=== PATIENT | female | born 1945 | race Caucasian/White ===

== ENCOUNTER 2025-02-24 06:11 | Inpatient (IN) | payer MEDICARE ==
[~2025-02-24] VITALS: Ht 172.7 cm; Wt 70.5 kg
[~2025-02-24 06:11] MED LIST: ACET-66 PO; ASPI-1444 PO; CEPH-558 PO; CeFAZolin 2 GM/DEXTROSE 50 ML IV ONE; FINA5TAB41 PO; LEUC5TAB PO; LEVO112T7 PO; METO-391 PO; PANT40TA54 PO; RINGERS SOLUTION,LACTATED 1,000 ML IV ONE; SPIR-37 PO
[2025-02-24 06:52] LABS: PLATELET COUNT (AUTO) 195 K/uL (150-450); RED BLOOD CELL COUNT(AUTO) 4.38 MIL/uL (4.00-5.20); RED CELL DISTRIBUTION WIDTH 13.6 % (11.5-14.5); WHITE BLOOD COUNT (AUTO) 4.3 K/uL (4.5-11.0)
[2025-02-24 06:55] LABS: CALCIUM, TOTAL 9.2 mg/dL (8.8-10.5); CREATININE 0.87 mg/dL (0.60-1.30); GLOMERULAR FILTR. RATE CALC > 60 mL/min (>60); GLUCOSE,RANDOM 96 mg/dL (70-110); SODIUM SERUM 135 mmol/L (136-145); UREA NITROGEN, BLOOD 15 mg/dL (7-18)
[2025-02-24] MEDS ORDERED: GELATIN SPONGE,ABSORBABLE 50 MM TP ONE (07:00)
[2025-02-24] MEDS ORDERED: MICROFIBRILLAR COLLAGEN 1 GM PACKAGE TP ONE (07:01)
[2025-02-24] MEDS ORDERED: SODIUM CHLORIDE 0.9% 30 ML ONE (07:01)
[2025-02-24] MEDS ORDERED: BUPIVACAINE HCL/PF 0.5% 30 ML VIAL ONE (07:02)
[2025-02-24] MEDS: CHLORHEXIDINE GLUCONATE 2% TOWELETTE [2'S/6'S] TP ONE (07:13)
[2025-02-24] MEDS: RINGERS SOLUTION,LACTATED 1,000 ML IV ONE (07:13)
[2025-02-24] MEDS: ETHYL ALCOHOL 62% ANTISEPTIC NASAL SANITIZER 0.6 ML AMPUL NASAL ONE (07:13)
[2025-02-24] MEDS: CeFAZolin 2 GM/DEXTROSE 50 ML IV ONE (07:40)
[2025-02-24] MEDS ORDERED: FentaNYL CITRATE PF 100 MCG/2 ML VIAL IVP PRN (08:15)
[2025-02-24] MEDS ORDERED: MEPERIDINE-PF 25 MG/ML VIAL IVP PRN (08:15)
[2025-02-24] MEDS ORDERED: RINGERS SOLUTION,LACTATED 1,000 ML IV ONE (08:42)
[2025-02-24] MEDS: VANCOMYCIN HCL 1 GM VIAL ONE (09:00)
[2025-02-24] MEDS: BUPIVACAINE LIPOSOME/PF 1.3%-13.3MG/ML SUSP 20 ML VIAL INJ ONE (09:00)
[2025-02-24] MEDS: BUPIVACAINE HCL/PF 0.25% 30 ML VIAL ONE (09:14)
[2025-02-24] MEDS ORDERED: ALBUTEROL SULFATE 2.5 MG/0.5 ML NEB SOLUTION NEB ONE (09:52)
[2025-02-24] MEDS ORDERED: IPRATROPIUM BROMIDE 0.5 MG/2.5 ML NEB SOLUTION NEB ONE (09:52)
[2025-02-24] MEDS ORDERED: IPRATROPIUM BROMIDE 0.5 MG/2.5 ML NEB SOLUTION NEB PRN ×2 (11:00→15:30)
[2025-02-24] MEDS ORDERED: ALBUTEROL SULFATE 2.5 MG/0.5 ML NEB SOLUTION NEB PRN ×2 (11:00→15:30)
[2025-02-24] MEDS ORDERED: ALBUTEROL SULFATE 2.5 MG/0.5 ML NEB SOLUTION NEB SCH (11:00)
[2025-02-24] MEDS ORDERED: IPRATROPIUM BROMIDE 0.5 MG/2.5 ML NEB SOLUTION NEB SCH (11:00)
[2025-02-24 11:34] VITALS: BP 137/77; PULSE 105; RESP 18; TEMP 97.7; O2SAT 95
[2025-02-24] MEDS ORDERED: FentaNYL CITRATE PF 100 MCG/2 ML VIAL ONE (12:00)
[2025-02-24] MEDS ORDERED: HYDROmorphone 2 MG/ML 20 ML VIAL IV ONE (12:00)
[2025-02-24] MEDS: ACETAMINOPHEN 1000 MG/ISO-OSM 100 ML IV SCH (13:00)
[2025-02-24] MEDS ORDERED: BISACODYL 10 MG RECTAL RECTAL SUPPOSITORY PR PRN (15:30)
[2025-02-24] MEDS ORDERED: MAGNESIUM HYDROXIDE SUSPENSION 30 ML UDCUP PO PRN (15:30)
[2025-02-24] MEDS ORDERED: ZOLPIDEM TARTRATE 5 MG TABLET PO PRN (15:30)
[2025-02-24 16:00] VITALS: BP 128/72; PULSE 78; RESP 18; TEMP 98.4; O2SAT 95
[2025-02-24] MEDS ORDERED: ONDANSETRON HCL 4 MG/2 ML VIAL ONE (16:08)
[2025-02-24] MEDS ORDERED: PROPOFOL 1% 20 ML VIAL IVP ONE (16:08)
[2025-02-24] MEDS ORDERED: ROCURONIUM BROMIDE 10 MG/ML 5 ML VIAL ONE (16:08)
[2025-02-24] MEDS ORDERED: 0.9% SODIUM CHLORIDE 10 ML VIAL ONE (16:08)
[2025-02-24] MEDS ORDERED: LIDOCAINE/PF 2% 5 ML SYRINGE IVP ONE (16:08)
[2025-02-24] MEDS ORDERED: DEXAMETHASONE SOD PHOS 4 MG/ML VIAL ONE (16:08)
[2025-02-24] MEDS ORDERED: SUGAMMADEX SODIUM 200 MG/2 ML VIAL IVP ONE (16:08)
[2025-02-24] MEDS: CeFAZolin 2 GM/DEXTROSE 50 ML IV SCH (16:08)
[2025-02-24] MEDS ORDERED: ACETAMINOPHEN/ISO-OSM 1000 MG/100 ML BOTTLE IV ONE (16:08)
[2025-02-24] MEDS ORDERED: SODIUM CHLORIDE 0.9% 250 ML IV ONE (17:14)
[2025-02-24 19:47] VITALS: BP 129/71; PULSE 75; RESP 19; TEMP 97.3; O2SAT 97
[2025-02-24] MEDS: OXYGEN THERAPY IH SCH (20:00)
[2025-02-24] MEDS: DOCUSATE SODIUM 100 MG CAPSULE PO SCH (20:39)
[2025-02-25 00:15] VITALS: BP 145/69; PULSE 88; RESP 19; TEMP 98.2; O2SAT 97
[2025-02-25] MEDS: ONDANSETRON HCL 4 MG/2 ML VIAL IVP PRN (01:18)
[2025-02-25 04:00] VITALS: BP 140/63; PULSE 83; RESP 18; TEMP 98.5; O2SAT 96
[2025-02-25] MEDS: LEVOTHYROXINE SODIUM 112 MCG TABLET PO SCH (05:48)
[2025-02-25 06:08] LABS: PLATELET COUNT (AUTO) 168 K/uL (150-450); RED BLOOD CELL COUNT(AUTO) 3.61 MIL/uL (4.00-5.20); RED CELL DISTRIBUTION WIDTH 13.8 % (11.5-14.5); WHITE BLOOD COUNT (AUTO) 5.6 K/uL (4.5-11.0)
[2025-02-25 06:26] LABS: CALCIUM, TOTAL 8.4 mg/dL (8.8-10.5); CREATININE 0.63 mg/dL (0.60-1.30); GLOMERULAR FILTR. RATE CALC > 60 mL/min (>60); GLUCOSE,RANDOM 103 mg/dL (70-110); SODIUM SERUM 134 mmol/L (136-145); UREA NITROGEN, BLOOD 12 mg/dL (7-18)
[2025-02-25 08:35] VITALS: BP 156/78; PULSE 74; RESP 18; TEMP 98.1; O2SAT 98
[2025-02-25] MEDS ORDERED: METOPROLOL SUCCINATE 50 MG ER TABLET PO SCH (09:00)
[2025-02-25] MEDS: ENOXAPARIN SODIUM 40 MG/0.4 ML PF SYRINGE SQ SCH (09:59)
[2025-02-25] MEDS: PANTOPRAZOLE SODIUM 40 MG DR TABLET PO SCH (09:59)
[2025-02-25] MEDS: FINASTERIDE 5 MG TABLET PO SCH (09:59)
[2025-02-25] MEDS: METOPROLOL SUCCINATE 50 MG ER TABLET PO SCH (10:03)
[2025-02-25 11:51] VITALS: BP 150/87; PULSE 78; RESP 19; TEMP 98.2; O2SAT 97
[2025-02-25] MEDS: ACETAMINOPHEN 325 MG TABLET PO PRN (13:17)
[2025-02-25 16:22] VITALS: BP 168/81; PULSE 74; RESP 18; TEMP 98.4; O2SAT 96
[2025-02-25 19:34] VITALS: BP 126/71; PULSE 77; RESP 18; TEMP 99; O2SAT 96
[2025-02-26 04:00] VITALS: BP 164/77; PULSE 88; RESP 18; TEMP 98.8; O2SAT 96
[2025-02-26] MEDS: CYCLOBENZAPRINE HCL 10 MG TABLET PO PRN (08:35)
[2025-02-26 11:07] VITALS: BP 139/69; PULSE 77; RESP 17; TEMP 98.2; O2SAT 94
[2025-02-26 15:46] VITALS: BP 157/75; PULSE 80; RESP 18; TEMP 98.1; O2SAT 97
[2025-02-26 19:39] VITALS: BP 125/76; PULSE 82; RESP 18; TEMP 98.6; O2SAT 97
[2025-02-27 05:19] VITALS: BP 149/84; PULSE 76; RESP 18; TEMP 97.9; O2SAT 97
[2025-02-27 08:13] VITALS: BP 150/89; PULSE 78; RESP 18; TEMP 97.5; O2SAT 98
[2025-02-27] MEDS ORDERED: ENOX40SY14 SQ (14:26)
[2025-02-27] MEDS ORDERED: DOCU-385 PO (14:26)
[2025-02-27] MEDS ORDERED: PANT-31 PO (14:27)
[2025-02-27] MEDS ORDERED: ACET-2247 PO (14:28)
[2025-02-27] MEDS ORDERED: CYCL-448 PO (14:29)
[2025-02-27] MEDS ORDERED: HYDR2CAR IVP (14:30)
[2025-02-27] MEDS ORDERED: MAGN-169 PO (14:31)
[2025-02-27] MEDS ORDERED: ONDA-104 IVP (14:33)
[2025-02-27] MEDS ORDERED: ZOLP-280 PO (14:34)
[2025-02-27] MEDS ORDERED: BISA-151 PO (14:35)
[2025-02-27] MEDS ORDERED: ALBU2.5V39 NEB (14:38)
[2025-02-27] MEDS ORDERED: IPRA0.2S49 NEB (14:39)
== END 2025-02-27 14:52 | DRG 476 ==
LOC: 4E 06:11 → 5S 11:15 → 4E 02-25 19:52
PROVIDERS: ADMIT Orthopaedic Surgery; ATTEND Hospitalist
PROC: 0KR Muscles, Replacement (ICD-10-PCS; 2025-02-24)
PROC: 0Y6H0Z1 Detachment at Right Lower Leg, High, Open Approach (ICD-10-PCS; principal; 2025-02-24 07:30)
DX: M21.861 Other specified acquired deformities of right lower leg (principal); G89.29 Other chronic pain; E03.9 Hypothyroidism, unspecified; I49.9 Cardiac arrhythmia, unspecified; M79.661 Pain in right lower leg; Z88.2 Allergy status to sulfonamides; Z88.1 Allergy status to other antibiotic agents; Z88.3 Allergy status to other anti-infective agents; Z88.5 Allergy status to narcotic agent
CPT/HCPCS: 80048; 84443; 85025; 85610; 85730; 87081; 88307; 93005; 97162; 97167; 97530; 97535; G0378; J0131; J0360; J0666; J0690; J1100; J1171; J1650; J2405; J2704; J3010; J3373; J3490; J7050; J7120

== ENCOUNTER 2025-02-27 10:23 | Inpatient (IN) | payer MEDICARE ==
[~2025-02-27] VITALS: Ht 172.7 cm; Wt 69.0 kg
[~2025-02-27 10:23] MED LIST changes: -ACET-66 PO; -ASPI-1444 PO; -CEPH-558 PO; -CeFAZolin 2 GM/DEXTROSE 50 ML IV ONE; -LEUC5TAB PO; -PANT40TA54 PO; -RINGERS SOLUTION,LACTATED 1,000 ML IV ONE; -SPIR-37 PO
[2025-02-27] MEDS ORDERED: ENOX40SY14 SQ (14:26)
[2025-02-27] MEDS ORDERED: DOCU-385 PO (14:26)
[2025-02-27] MEDS ORDERED: PANT-31 PO (14:27)
[2025-02-27] MEDS ORDERED: ACET-2247 PO (14:28)
[2025-02-27] MEDS ORDERED: CYCL-448 PO (14:29)
[2025-02-27] MEDS ORDERED: HYDR2CAR IVP (14:30)
[2025-02-27] MEDS ORDERED: MAGN-169 PO (14:31)
[2025-02-27] MEDS ORDERED: ONDA-104 IVP (14:33)
[2025-02-27] MEDS ORDERED: ZOLP-280 PO (14:34)
[2025-02-27] MEDS ORDERED: BISA-151 PO (14:35)
[2025-02-27] MEDS ORDERED: ALBU2.5V39 NEB (14:38)
[2025-02-27] MEDS ORDERED: IPRA0.2S49 NEB (14:39)
[2025-02-27] MEDS ORDERED: ALBUTEROL SULFATE 2.5 MG/0.5 ML NEB SOLUTION NEB PRN (15:15)
[2025-02-27] MEDS ORDERED: ZOLPIDEM TARTRATE 5 MG TABLET PO PRN (15:15)
[2025-02-27] MEDS ORDERED: BISACODYL 10 MG RECTAL RECTAL SUPPOSITORY PR PRN (15:15)
[2025-02-27] MEDS ORDERED: IPRATROPIUM BROMIDE 0.5 MG/2.5 ML NEB SOLUTION NEB PRN (15:15)
[2025-02-27] MEDS ORDERED: ONDANSETRON 4 MG TABLET PO PRN (15:15)
[2025-02-27] MEDS ORDERED: CYCLOBENZAPRINE HCL 10 MG TABLET PO PRN (15:15)
[2025-02-27] MEDS ORDERED: ACETAMINOPHEN 325 MG TABLET PO PRN (15:15)
[2025-02-27 15:20] VITALS: BP 141/87; PULSE 96; RESP 18; TEMP 98.4; O2SAT 98
[2025-02-27] MEDS: ACETAMINOPHEN 325 MG TABLET PO PRN (15:52)
[2025-02-27] MEDS: PNEUMOCOCCAL VACCINE POLYVALENT 0.5 ML SYRINGE [PPSV23] IM. ONE (16:00)
[2025-02-27] MEDS: INFLUENZA VIRUS VACCINE TVS (6MO+) 2025-26/PF 45 MCG/0.5 ML SYRINGE IM. ONE (16:00)
[2025-02-27] MEDS ORDERED: OxyCODONE HCL 5 MG IR TABLET PO PRN ×2 (16:30)
[2025-02-27 20:03] VITALS: BP 106/53; PULSE 84; RESP 18; TEMP 98.2; O2SAT 99
[2025-02-27] MEDS: ETHYL ALCOHOL 62% ANTISEPTIC NASAL SANITIZER 0.6 ML AMPUL NASAL SCH (20:50)
[2025-02-27] MEDS: DOCUSATE SODIUM 100 MG CAPSULE PO SCH (20:54)
[2025-02-27 21:06] VITALS: BP 127/69; PULSE 75; RESP 18; O2SAT 98
[2025-02-27 21:51] VITALS: O2SAT 99
[2025-02-28] MEDS: LEVOTHYROXINE SODIUM 112 MCG TABLET PO SCH (06:42)
[2025-02-28 08:00] VITALS: BP 136/69; PULSE 71; RESP 20; TEMP 98.1; O2SAT 98
[2025-02-28] MEDS: ENOXAPARIN SODIUM 40 MG/0.4 ML PF SYRINGE SQ SCH (08:33)
[2025-02-28] MEDS: PANTOPRAZOLE SODIUM 40 MG DR TABLET PO SCH (08:34)
[2025-02-28] MEDS: METOPROLOL SUCCINATE 50 MG ER TABLET PO SCH (08:34)
[2025-02-28] MEDS: FINASTERIDE 5 MG TABLET PO SCH (08:34)
[2025-02-28 10:31] LABS: PLATELET COUNT (AUTO) 185 K/uL (150-450); RED BLOOD CELL COUNT(AUTO) 3.79 MIL/uL (4.00-5.20); RED CELL DISTRIBUTION WIDTH 13.3 % (11.5-14.5); WHITE BLOOD COUNT (AUTO) 3.6 K/uL (4.5-11.0)
[2025-02-28 10:46] LABS: ASPARTATE AMINOTRANSFERASE 36 U/L (15-37); CALCIUM, TOTAL 8.3 mg/dL (8.8-10.5); CREATININE 0.62 mg/dL (0.60-1.30); GLOMERULAR FILTR. RATE CALC > 60 mL/min (>60); GLUCOSE,RANDOM 162 mg/dL (70-110); SODIUM SERUM 135 mmol/L (136-145); TOTAL PROTEIN, SERUM 6.2 g/dL (6.4-8.2); UREA NITROGEN, BLOOD 14 mg/dL (7-18)
[2025-02-28 20:00] VITALS: BP 125/66; PULSE 84; RESP 18; TEMP 97.5; O2SAT 96
[2025-03-01] MEDS: MAGNESIUM HYDROXIDE SUSPENSION 30 ML UDCUP PO PRN (05:47)
[2025-03-01 08:00] VITALS: BP 153/79; PULSE 73; RESP 18; TEMP 98.6; O2SAT 97
[2025-03-01 10:00] VITALS: BP 135/71; PULSE 75; RESP 18; O2SAT 98
[2025-03-01] MEDS: DOCUSATE SODIUM 283 MG/5 ML MINI-ENEMA PR PRN (12:13)
[2025-03-01 19:53] VITALS: BP 140/86; PULSE 89; RESP 19; TEMP 98.6; O2SAT 95
[2025-03-01] MEDS: DOCUSATE SODIUM 250 MG CAPSULE PO SCH (19:55)
[2025-03-02 07:05] LABS: CALCIUM, TOTAL 8.8 mg/dL (8.8-10.5); CREATININE 0.66 mg/dL (0.60-1.30); GLOMERULAR FILTR. RATE CALC > 60 mL/min (>60); GLUCOSE,RANDOM 92 mg/dL (70-110); SODIUM SERUM 137 mmol/L (136-145); UREA NITROGEN, BLOOD 11 mg/dL (7-18)
[2025-03-02 08:00] VITALS: BP 142/72; PULSE 81; RESP 18; TEMP 98.1; O2SAT 96
[2025-03-02] MEDS: POLYETHYLENE GLYCOL 3350 17 GM PACKET PO SCH (11:15)
[2025-03-02 20:09] VITALS: BP 120/67; PULSE 87; RESP 18; TEMP 98.6; O2SAT 96
[2025-03-03 08:00] VITALS: BP 143/81; PULSE 78; RESP 19; TEMP 98.4; O2SAT 98
[2025-03-03] MEDS: LACTOBAC ACID/BULG/BIFID/THERM TABLET PO SCH (12:16)
[2025-03-03] MEDS: CEPHALEXIN MONOHYDRATE 500 MG CAPSULE PO SCH (16:03)
[2025-03-03 20:00] VITALS: BP 119/62; PULSE 76; RESP 18; TEMP 97.7; O2SAT 98
[2025-03-04 08:00] VITALS: BP 154/88; PULSE 71; RESP 20; TEMP 98.2; O2SAT 99
[2025-03-04] MEDS ORDERED: ACID1TAB13 PO (09:52)
[2025-03-04] MEDS ORDERED: CEPH-558 PO (09:52)
[2025-03-04] MEDS ORDERED: PANT-31 PO (09:52)
[2025-03-04] MEDS ORDERED: METO-391 PO (09:52)
[2025-03-04] MEDS ORDERED: LEVO112T7 PO (09:52)
[2025-03-04 20:45] VITALS: BP 129/74; PULSE 78; RESP 18; TEMP 98.2; O2SAT 98
[2025-03-04 22:50] VITALS: O2SAT 98
[2025-03-05 08:00] VITALS: BP 137/84; PULSE 75; RESP 19; TEMP 97.2; O2SAT 98
[2025-03-05 20:00] VITALS: BP 155/84; PULSE 78; RESP 18; TEMP 97.5; O2SAT 98
[2025-03-06 08:00] VITALS: BP 137/82; PULSE 79; RESP 18; TEMP 98.1; O2SAT 98
== END 2025-03-06 09:50 | disposition home or self-care (01) | DRG 74 ==
LOC: 2WR 15:01
PROVIDERS: ADMIT Physical Medicine & Rehabilitation; ATTEND Physical Medicine & Rehabilitation
DX: G54.6 Phantom limb syndrome with pain (principal); E87.1 Hypo-osmolality and hyponatremia; I47.10 Supraventricular tachycardia, unspecified; Z74.09 Other reduced mobility; D64.9 Anemia, unspecified; F43.20 Adjustment disorder, unspecified; R26.9 Unspecified abnormalities of gait and mobility; E03.9 Hypothyroidism, unspecified; I10 Essential (primary) hypertension; M25.511 Pain in right shoulder; R53.1 Weakness; K59.00 Constipation, unspecified; R73.9 Hyperglycemia, unspecified; Z88.1 Allergy status to other antibiotic agents; Z88.2 Allergy status to sulfonamides; Z88.3 Allergy status to other anti-infective agents; Z88.5 Allergy status to narcotic agent; Z89.511 Acquired absence of right leg below knee; Z79.899 Other long term (current) drug therapy; Z79.82 Long term (current) use of aspirin
CPT/HCPCS: 80048; 80053; 83036; 85025; 87081; 97110; 97116; 97162; 97167; 97530; 97535; 99366; J1650